=== PATIENT | male | born 1995 | race Caucasian/White ===

== ENCOUNTER 2024-12-28 21:32 | Emergency (ER) | payer MEDICAID ==
[~2024-12-28] VITALS: Ht 175.3 cm; Wt 77.1 kg
[2024-12-28 21:38] VITALS: BP 162/99; TEMP 98.4
[2024-12-28] MEDS ORDERED: PRED20TA PO (22:04)
[2024-12-28] MEDS ORDERED: FAMO20TA80 PO (22:04)
[2024-12-28] MEDS ORDERED: DIPH25CA83 PO (22:04)
[2024-12-28] MEDS ORDERED: EPIN0.3P3 IM (22:05)
[2024-12-28] MEDS ORDERED: predniSONE 20 MG TABLET ONE (22:17)
[2024-12-28] MEDS: predniSONE 50 MG TABLET PO ONE (22:26)
[2024-12-28 22:53] VITALS: O2SAT 99
== END 2024-12-28 22:54 | disposition home or self-care (01) ==
LOC: ER 21:41
DX: T78.49XA Other allergy, initial encounter (principal); L50.9 Urticaria, unspecified; Z79.52 Long term (current) use of systemic steroids; X58.XXXA Exposure to other specified factors, initial encounter
CPT/HCPCS: 99283; J7512

== ENCOUNTER 2025-05-26 19:58 | Emergency (ER) | payer MEDICAID ==
[~2025-05-26] VITALS: Ht 172.7 cm; Wt 68.0 kg
[2025-05-26 19:58] VITALS: BP 129/78; TEMP 98.1
[~2025-05-26 19:58] MED LIST: DIPH25CA83 PO; EPIN0.3P3 IM; FAMO20TA80 PO; PRED20TA PO
[2025-05-26] MEDS ORDERED: FLUORESCEIN SODIUM OPHTH 1 EA STRIP ONE (20:18)
[2025-05-26] MEDS ORDERED: TETRAcaine 5 ML BOTTLE ONE (20:18)
[2025-05-26] MEDS: TETRAcaine 5 ML BOTTLE EACHEYE ONE (20:19)
[2025-05-26] MEDS: FLUORESCEIN SODIUM OPHTH 1 EA STRIP OP ONE (20:20)
[2025-05-26] MEDS ORDERED: POLY10DR OP (20:31)
[2025-05-26 20:40] VITALS: O2SAT 99
== END 2025-05-26 20:41 | disposition home or self-care (01) ==
LOC: ER 20:22
DX: S05.01XA Injury of conjunctiva and corneal abrasion without foreign body, right eye, initial encounter (principal); Z79.52 Long term (current) use of systemic steroids; X58.XXXA Exposure to other specified factors, initial encounter; Y93.89 Activity, other specified; Y92.89 Other specified places as the place of occurrence of the external cause; Y99.8 Other external cause status